=== PATIENT | female | born 1995 | race Caucasian/White ===

== ENCOUNTER 2017-10-06 19:48 | Emergency (ER) | payer OTHER ==
[~2017-10-06] VITALS: Ht 170.2 cm; Wt 81.8 kg
[2017-10-06] MEDS ORDERED: CEPHALEXIN250 M1 PO (20:07)
[2017-10-06 20:53] LABS: MEAN CELL VOLUME 84 fl (80.0-95.0); MEAN CORPUSCULAR HEMOGLOBIN 30 pg (26.0-32.0); MEAN CORPUSCULAR HGB CONC 35 g/dl (33.0-37.0); MEAN PLATELET VOLUME 9.8 fl (7.4-10.4); PLATELET COUNT 152 K/mm3 (130-400); RED BLOOD COUNT 4.04 M/mm3 (4.10-5.30); REDCELL DISTRIBUTION WIDTH-CV 12.6 % (11.5-14.5)
[2017-10-06 20:59] LABS: ALBUMIN 3.9 gm/dL (3.5-5.0); BILIRUBIN,TOTAL 0.9 mg/dL (0.0-1.0); CREATININE, serum 0.75 mg/dL (0.52-1.25); POTASSIUM 3.3 mmol/L (3.4-5.0); TOTAL PROTEIN 7.6 gm/dL (6.4-8.2)
[2017-10-06 21:12] VITALS: TEMP 99.4
[2017-10-06 21:40] LABS: BAND 9 % (0-10); BASOPHIL 1 % (0-2); METAMYELOCYTE 2 % (0-0); NEUTROPHILS 25 % (42.0-75.2)
[2017-10-06 21:43] LABS: LYMPHOCYTE 59 % (20.0-51.0); PLATELET ESTIMATE NORMAL (NORMAL)
[2017-10-06 21:45] LABS: ANISOCYTOSIS 1+; POLYCHROMASIA 1+
[2017-10-06] MEDS ORDERED: BACTRIM DS 8001 TAB PO (21:50)
[2017-10-06 22:11] VITALS: BP 115/62; PULSE 78
[2017-10-07 08:16] LABS: PATHOLOGY DIFF REVIEW OK +
== END 2017-10-06 22:10 | disposition home or self-care (01) ==
LOC: COL.ER 19:48
PROVIDERS: Emergency Medicine
DX: L03.114 Cellulitis of left upper limb (principal); R94.5 Abnormal results of liver function studies
CPT/HCPCS: J7030

== ENCOUNTER 2017-10-08 10:11 | Emergency (ER) | payer OTHER ==
[~2017-10-08] VITALS: Ht 170.2 cm; Wt 81.8 kg
[~2017-10-08 10:11] MED LIST: BACTRIM DS 8001 TAB PO; CEPHALEXIN250 M1 PO
[2017-10-08 10:14] VITALS: TEMP 97.2
[2017-10-08 10:54] LABS: COLLECTION METHOD CLEAN CATCH
[2017-10-08 11:04] LABS: HEMOGLOBIN 12.7 g/dl (12.0-15.0); MEAN CELL VOLUME 85 fl (80.0-95.0); MEAN CORPUSCULAR HEMOGLOBIN 30 pg (26.0-32.0); MEAN CORPUSCULAR HGB CONC 35 g/dl (33.0-37.0); MEAN PLATELET VOLUME 9.1 fl (7.4-10.4); PLATELET COUNT 162 K/mm3 (130-400); RED BLOOD COUNT 4.31 M/mm3 (4.10-5.30); REDCELL DISTRIBUTION WIDTH-CV 12.8 % (11.5-14.5)
[2017-10-08 11:08] LABS: MUCOUS Present /lpf; PH 5 (5-8); URINE APPEARANCE Clear; URINE BACTERIA Rare /hpf; URINE BILIRUBIN Negative (NEGATIVE); URINE BLOOD Negative (NEGATIVE); URINE COLOR Yellow; URINE GLUCOSE Negative (NEGATIVE); URINE KETONE Trace (NEGATIVE); URINE LEUKOCYTE ESTERASE Trace (NEGATIVE); URINE NITRATE Negative (NEGATIVE); URINE PROTEIN(semi-quant) Negative (NEGATIVE); URINE RBC 0-2 /hpf; URINE UROBILINOGEN >=4.0 mg/dL (NEGATIVE)
[2017-10-08 11:09] LABS: ALBUMIN 3.5 gm/dL (3.5-5.0); BILIRUBIN,TOTAL 0.8 mg/dL (0.0-1.0); C-REACTIVE PROTEIN 1.7 mg/dL (0.0-0.9); CALCIUM 8.7 mg/dL (8.4-10.2); CREATININE, serum 0.74 mg/dL (0.52-1.25); POTASSIUM 3.7 mmol/L (3.4-5.0)
[2017-10-08 11:18] LABS: HEMATOCRIT 36.5 % (35.0-45.0)
[2017-10-08 12:15] LABS: BAND 3 % (0-10); BASOPHIL 1 % (0-2); LYMPHOCYTE 51 % (20.0-51.0); NEUTROPHILS 36 % (42.0-75.2)
[2017-10-08 12:16] LABS: HYPOCHROMIA 1+; OVALOCYTES 1+; PLATELET ESTIMATE NORMAL (NORMAL)
[2017-10-08] MEDS ORDERED: DOXYCYCLINE HY100 MG PO (12:41)
[2017-10-08 12:56] VITALS: BP 131/81; PULSE 67
== END 2017-10-08 12:57 | disposition home or self-care (01) ==
LOC: COL.ER 10:11
PROVIDERS: Emergency Medicine
DX: R53.81 Other malaise (principal); R21 Rash and other nonspecific skin eruption; Z87.2 Personal history of diseases of the skin and subcutaneous tissue
CPT/HCPCS: J0696; J7030